=== PATIENT | female | born 1980 | race Caucasian/White ===

== ENCOUNTER 2021-05-15 16:03 | Emergency (ER) | payer MEDICAID ==
[~2021-05-15] VITALS: Ht 152.4 cm; Wt 75.0 kg
[2021-05-15 16:06] VITALS: BP 123/83
[2021-05-15 18:02] LABS: CLARITY URINE TURBID (CLEAR); COLOR URINE RED (YELLOW); KETONES URINE NEGATIVE (NEGATIVE); LEUKOCYTE ESTERASE URINE 2+ (NEGATIVE); NITRITE URINE NEGATIVE (NEGATIVE); OCCULT BLOOD URINE 3+ (NEGATIVE); PROTEIN URINE 2+ (NEGATIVE); SPECIFIC GRAVITY URINE 1.016 (1.005-1.030); UROBILINOGEN URINE 0.2 E.U./dL (0.2-1.0)
[2021-05-15 18:04] LABS: BASOPHILS % 0.5 % (0.0-2.0); EOSINOPHILS % 1.7 % (0.0-5.0); HEMATOCRIT. 28.2 % (36.0-48.0); HEMOGLOBIN. 9.1 g/dL (12.0-16.0); LYMPHOCYTES % 30.5 % (20.0-50.0); MEAN CORPUSCULAR HEMOGLOBIN 20.9 pg (28.0-32.0); MEAN CORPUSCULAR VOLUME 64.6 fL (81.0-99.0); MEAN PLATELET VOLUME 8.4 fl (7.4-10.4); MONOCYTES % 6.4 % (2.0-8.0); NEUTROPHILS % 60.9 % (40.0-76.0); PLATELET 406 x1000/uL (130-400); RED BLOOD CELL COUNT 4.36 mill/uL (4.2-5.4); RED CELL DISTRIBUTION WIDTH 19.6 % (11.6-14.6)
[2021-05-15 18:13] LABS: CHLORIDE 106 mEq/L (98-107)
[2021-05-15 18:22] LABS: B-HCG QUANTITATIVE < 1 mIU/mL (<3); PLATELET ESTIMATE INCREASED
[2021-05-15] MEDS ORDERED: NITR-87 MT (19:52)
[2021-05-15] MEDS ORDERED: FERR-71 MT (19:52)
[2021-05-15] MEDS ORDERED: ASCO100T12 MT (19:52)
[2021-05-15] MEDS ORDERED: ACETAMINOPHEN 325MG TABLET PO ONE (20:00)
== END 2021-05-15 20:07 | disposition home or self-care (01) ==
LOC: ER 16:03
DX: N39.0 Urinary tract infection, site not specified (principal); R31.0 Gross hematuria; D64.9 Anemia, unspecified; R03.0 Elevated blood-pressure reading, without diagnosis of hypertension; J45.909 Unspecified asthma, uncomplicated
CPT/HCPCS: 36415; 76830; 76856; 80053; 81003; 81025; 84702; 85025; 86850; 86900; 99284

== ENCOUNTER 2023-01-25 11:25 | Emergency (ER) | payer MEDICAID ==
[~2023-01-25] VITALS: Ht 157.5 cm; Wt 107.0 kg
[~2023-01-25 11:25] MED LIST: ASCO100T12 MT; FERR-71 MT; NITR-87 MT
[2023-01-25 11:42] VITALS: TEMP 99; O2SAT 100
[2023-01-25 12:28] LABS: BASOPHILS % 0.4 % (0.0-2.0); EOSINOPHILS % 1.3 % (0.0-5.0); HEMATOCRIT. 31.5 % (36.0-48.0); HEMOGLOBIN. 10.1 g/dL (12.0-16.0); LYMPHOCYTES % 27.2 % (20.0-50.0); MEAN CORPUSCULAR HEMOGLOBIN 22.2 pg (28.0-32.0); MEAN CORPUSCULAR HGB CONC 32.1 g/dL (31.0-37.0); MEAN CORPUSCULAR VOLUME 69.2 fL (81.0-99.0); MEAN PLATELET VOLUME 8.7 fl (7.4-10.4); MONOCYTES % 5.5 % (2.0-8.0); NEUTROPHILS % 65.6 % (40.0-76.0); PLATELET 349 x1000/uL (130-400); RED BLOOD CELL COUNT 4.55 mill/uL (4.2-5.4); RED CELL DISTRIBUTION WIDTH 18.3 % (11.6-14.6); WHITE BLOOD COUNT 8.3 x1000/uL (4.5-11.0)
[2023-01-25 12:32] LABS: ADD RBC MORPHOLOGY YES; DIFFERENTIAL COMMENT 1
[2023-01-25 13:14] LABS: ALANINE AMINOTRANSFERASE 12 IU/L (10-49); ALBUMIN 4.1 g/dL (3.2-4.8); ASPARTATE AMINOTRANSFERASE 15 IU/L (<34); BILIRUBIN TOTAL 0.5 mg/dL (0.1-1.0); CALCIUM 9.1 mg/dL (8.7-10.4); CARBON DIOXIDE 23 mEq/L (21-32); CHLORIDE 106 mEq/L (98-107); CREATININE 0.6 mg/dL (0.6-1.0); GLUCOSE 90 mg/dL (70-105); POTASSIUM 3.5 mEq/L (3.5-5.1); PROTEIN TOTAL 7.1 g/dL (6.0-8.3); SODIUM 138 mEq/L (136-145); UREA NITROGEN BLOOD 8 mg/dL (9-23)
[2023-01-25 13:50] LABS: ANISOCYTOSIS 1+; MICROCYTOSIS 1+; OVALOCYTES 1+; PLATELET ESTIMATE NORMAL
[2023-01-25] MEDS ORDERED: KETOROLAC 60MG/2ML VIAL IM ONE (14:15)
[2023-01-25 14:48] LABS: HCG SCREEN NEGATIVE
[2023-01-25 14:56] LABS: CREATINE KINASE 63 IU/L (34-145)
[2023-01-25] MEDS ORDERED: KETOROLAC 60MG/2ML VIAL IM NR (15:58)
[2023-01-25 16:16] VITALS: BP 122/80; PULSE 90; RESP 16
== END 2023-01-25 18:18 | disposition home or self-care (01) ==
LOC: ER 11:25
DX: M79.604 Pain in right leg (principal); M79.605 Pain in left leg; D64.9 Anemia, unspecified; J45.909 Unspecified asthma, uncomplicated; I10 Essential (primary) hypertension; Z98.890 Other specified postprocedural states; Z90.49 Acquired absence of other specified parts of digestive tract
CPT/HCPCS: 99285; 93970; 80053; 82550; 84703; 85025; 36415; 73562; 73590; 96372; J1885

== ENCOUNTER 2023-08-28 16:58 | Emergency (ER) | payer MEDICAID ==
[~2023-08-28] VITALS: Ht 157.5 cm; Wt 119.0 kg
[2023-08-28 17:05] VITALS: O2SAT 98
[2023-08-28 20:19] LABS: BASOPHILS % 0.4 % (0.0-2.0); CHLORIDE 106 mEq/L (98-107); EOSINOPHILS % 1.5 % (0.0-5.0); HEMATOCRIT. 32.7 % (36.0-48.0); HEMOGLOBIN. 10.1 g/dL (12.0-16.0); LYMPHOCYTES % 25.8 % (20.0-50.0); MEAN CORPUSCULAR HEMOGLOBIN 20.8 pg (28.0-32.0); MEAN CORPUSCULAR HGB CONC 30.8 g/dL (31.0-37.0); MEAN CORPUSCULAR VOLUME 67.6 fL (81.0-99.0); MEAN PLATELET VOLUME 8.7 fl (7.4-10.4); MONOCYTES % 5.8 % (2.0-8.0); NEUTROPHILS % 66.5 % (40.0-76.0); PLATELET 341 x1000/uL (130-400); POTASSIUM 3.7 mEq/L (3.5-5.1); RED BLOOD CELL COUNT 4.83 mill/uL (4.2-5.4); RED CELL DISTRIBUTION WIDTH 19.6 % (11.6-14.6); SODIUM 136 mEq/L (136-145); WHITE BLOOD COUNT 8.2 x1000/uL (4.5-11.0)
[2023-08-28 20:20] LABS: CALCIUM 9.1 mg/dL (8.7-10.4); CARBON DIOXIDE 24 mEq/L (21-32)
[2023-08-28 20:25] LABS: CREATININE 0.7 mg/dL (0.6-1.0); GLUCOSE 103 mg/dL (70-105); UREA NITROGEN BLOOD 9 mg/dL (9-23)
[2023-08-28 20:27] LABS: ADD RBC MORPHOLOGY YES; ALANINE AMINOTRANSFERASE 16 IU/L (10-49); ALBUMIN 4.2 g/dL (3.2-4.8); ASPARTATE AMINOTRANSFERASE 18 IU/L (<34); BILIRUBIN TOTAL 0.3 mg/dL (0.1-1.0); DIFFERENTIAL COMMENT 1; PROTEIN TOTAL 7.3 g/dL (6.0-8.3)
[2023-08-28 20:29] LABS: BILIRUBIN DIRECT < 0.1 mg/dL (<=3.0); TROPONIN I HIGH SENSITIVITY < 4 ng/L (3.0-34)
[2023-08-28 20:31] LABS: HCG SCREEN NEGATIVE
[2023-08-28 20:51] LABS: ANISOCYTOSIS 1+; HYPOCHROMASIA 2+; MICROCYTOSIS 3+; OVALOCYTES 1+; PLATELET ESTIMATE NORMAL
[2023-08-28 22:34] VITALS: BP 120/55; PULSE 75; RESP 15; TEMP 98
[2023-08-28] MEDS: NITROGLYCERIN 0.4MG TABLET SL SL PRN (23:26)
== END 2023-08-29 00:40 | disposition left against medical advice (07) ==
LOC: ER 16:58
DX: R07.9 Chest pain, unspecified (principal); D64.9 Anemia, unspecified; J45.909 Unspecified asthma, uncomplicated; I10 Essential (primary) hypertension; Z90.49 Acquired absence of other specified parts of digestive tract; Z98.890 Other specified postprocedural states
CPT/HCPCS: 80076; 80048; 84703; 83880; 85025; 85379; 84484; 36415; 71045; 93970; 93005; 99285; Z7610